=== PATIENT | male | born 1995 | race Caucasian/White ===

== ENCOUNTER 2022-12-01 15:48 | Emergency (ER) | payer MEDICAID ==
[~2022-12-01] VITALS: Ht 172.7 cm; Wt 73.0 kg
[2022-12-01] MEDS ORDERED: ONDANSETRON 4MG ODT PO STA (15:57)
[2022-12-01 18:14] LABS: BASOPHILS % 0.7 % (0.0-2.0); EOSINOPHILS % 3.6 % (0.0-5.0); HEMATOCRIT. 48.8 % (42.0-52.0); HEMOGLOBIN. 16.3 g/dL (14.0-18.0); LYMPHOCYTES % 14.8 % (20.0-50.0); MEAN CORPUSCULAR HEMOGLOBIN 30.1 pg (28.0-32.0); MEAN CORPUSCULAR VOLUME 90.2 fL (80.0-94.0); MEAN PLATELET VOLUME 6.7 fl (7.4-10.4); MONOCYTES % 5.9 % (2.0-8.0); PLATELET 216 x1000/uL (130-400); RED BLOOD CELL COUNT 5.41 mill/uL (4.7-6.1); RED CELL DISTRIBUTION WIDTH 13.8 % (11.6-14.6)
[2022-12-01 18:15] VITALS: BP 133/90
[2022-12-01 18:48] LABS: CHLORIDE 117 mEq/L (98-107)
[2022-12-01 19:17] LABS: ETHANOL BLOOD 349 mg/dL
== END 2022-12-01 18:30 | disposition home or self-care (01) ==
LOC: ER 15:48
DX: F10.129 Alcohol abuse with intoxication, unspecified (principal); Y90.8 Blood alcohol level of 240 mg/100 ml or more
CPT/HCPCS: 36415; 80053; 80320; 82962; 85025; 99283; G0480

== ENCOUNTER 2023-02-12 02:37 | Emergency (ER) | payer MEDICAID ==
[~2023-02-12] VITALS: Ht 162.6 cm; Wt 73.0 kg
[2023-02-12 02:38] VITALS: BP 142/76
== END 2023-02-12 05:09 | disposition home or self-care (01) ==
LOC: ER 02:43
DX: F41.9 Anxiety disorder, unspecified (principal)
CPT/HCPCS: 99283